=== PATIENT | female | born 1930 | race Caucasian/White ===

== ENCOUNTER 2017-10-12 14:53 | Emergency (ER) | payer MEDICARE ==
[2017-10-12] MEDS ORDERED: Furosemide 40 MG/4 ML VIAL IVPUSH ONE (15:09)
--- NOTE | 2017-10-12 15:15 | EDM.PDOC ---
ED HPI GENERAL MEDICAL PROBLEM - General Chief Complaint: Respiratory Problem Stated Complaint: SOB Time Seen by Provider: 10/12/17 15:10 Source of Information: Reports: Patient, Custodial Records History Limitations: Reports: Other (Dementia) - History of Present Illness INITIAL COMMENTS - FREE TEXT/NARRATIVE: Cough and congestion since x 5 days. Denies SOB or chest pain. Sa02 80's today. History of CHF and COPD Onset Date: 10/07/17 Severity: Moderate - Related Data Allergies Allergy/AdvReac Type Severity Reaction Status Date / Time codeine Allergy Other Verified 10/12/17 15:20 meperidine [From Demerol] Allergy Other Verified 10/12/17 15:20 Past Medical History Cardiovascular History: Reports: Heart Failure Respiratory History: Reports: COPD Neurological History: Reports: TIA, Other (See Below) (Dementia) Social & Family History - Tobacco Use Tobacco Use Within Last Twelve Months: No ED ROS GENERAL - Review of Systems Review Of Systems: See Below Constitutional: Reports: No Symptoms HEENT: Reports: No Symptoms Respiratory: Reports: Cough. Denies: Shortness of Breath Cardiovascular: Reports: No Symptoms Endocrine: Reports: No Symptoms GI/Abdominal: Reports: No Symptoms : Reports: No Symptoms Musculoskeletal: Reports: No Symptoms Skin: Reports: No Symptoms Neurological: Reports: No Symptoms Psychiatric: Reports: No Symptoms Hematologic/Lymphatic: Reports: No Symptoms Immunologic: Reports: No Symptoms ED EXAM, GENERAL - Physical Exam Exam: See Below Exam Limited By: No Limitations General Appearance: Alert, WD/WN, No Apparent Distress Nose: Normal Inspection Throat/Mouth: No Airway Compromise Head: Atraumatic, Normocephalic Neck: Supple Respiratory/Chest: No Respiratory Distress, Rhonchi. No: Wheezing Cardiovascular: Regular Rate, Rhythm, No Murmur GI/Abdominal: Normal Bowel Sounds, Soft, Non-Tender Extremities: Normal Inspection, Pedal Edema (trace pitting) Neurological: Alert Skin Exam: Warm, Dry, Normal Color, No Rash EKG INTERPRETATION EKG Date: 10/12/17 Time: 15:16 Rhythm: NSR Rate (Beats/Min): 85 [place]: Normal P-Wave: Present QRS: Normal ST-T: Normal QT: Normal EKG Interpretation Comments: No acute ischemia, no arrhythmia Course - Vital Signs Last Recorded V/S: Last Vital Signs Temp 36.9 C 10/12/17 15:00 Pulse 89 07/18/18 15:00 Resp 22 H 10/12/17 15:00 BP 142/71 H 10/12/17 15:00 Pulse Ox 96 10/12/17 15:26 - Orders/Labs/Meds Orders: Active Orders 24 hr Category Date Time Status CXR [Chest 1V Frontal] [CR] Stat Exams 10/12/17 15:07 Taken CULTURE BLOOD [BC] Stat Lab 10/12/17 15:25 Received CULTURE BLOOD [BC] Stat Lab 10/12/17 15:30 Received Sodium Chloride 0.9% [Saline Flush] Med 10/12/17 15:11 Active 10 ml FLUSH ASDIRECTED PRN Blood Culture x2 Reflex Set [OM.PC] Urgent Oth 10/12/17 15:08 Ordered Saline Lock Insert [OM.PC] Routine Oth 10/12/17 15:11 Ordered EKG 12 Lead [EK] Routine Ther 10/12/17 15:07 Ordered Medication Orders Sodium Chloride (Saline Flush) 10 ml FLUSH ASDIRECTED PRN PRN Reason: Keep Vein Open Last Admin: 10/12/17 15:48 Dose: 10 ml Admin: 10/12/17 15:40 Dose: 10 ml Labs: Laboratory Tests 10/12/17 10/12/17 10/12/17 Range/Units 15:25 15:25 15:25 WBC 12.1 H (4.5-12.0) X10-3/uL RBC 3.68 (3.23-5.20) x10(6)uL Hgb 12.3 (11.5-15.5) g/dL Hct 36.9 (30.0-51.3) % MCV 100.2 H (80-96) fL MCH 33.4 (27.7-33.6) pg MCHC 33.3 (32.2-35.4) g/dL RDW 12.4 (11.5-15.5) % Plt Count 332 (125-369) X10(3)uL MPV 8.3 (7.4-10.4) fL Neut % (Auto) 78.2 (46-82) % Lymph % (Auto) 7.3 L (13-37) % Door % (Auto) 12.3 H (4-12) % Eos % (Auto) 0 L (1.0-5.0) % Baso % (Auto) 2 (0-2) % Neut # (Auto) 9.5 H (1.6-8.3) # Lymph # (Auto) 0.9 (0.6-5.0) # Door # (Auto) 1.5 H (0.0-1.3) # Eos # (Auto) 0.0 (0.0-0.8) # Baso # (Auto) 0.2 (0.0-0.2) # PT 9.9 (8.7-11.1) INR 1.02 (0.89-1.13) Sodium 140 (135-145) mmol/L Potassium 4.6 (3.5-5.3) mmol/L Chloride 104 (100-110) mmol/L Carbon Dioxide 29 (21-32) mmol/L BUN 21 H (7-18) mg/dL Creatinine 1.3 H (0.55-1.02) mg/dL Est Cr Clr Drug Dosing TNP Estimated GFR (MDRD) 39 L (>60) BUN/Creatinine Ratio 16.2 (9-20) Glucose 110 (80-116) mg/dL Lactic Acid (0.4-2.2) mmol/L Calcium 9.2 (8.6-10.2) mg/dL Troponin I (<0.017-0.056) ng/mL NT-Pro-B Natriuret Pep (<=450) pg/mL 18 / Range/Units 15:25 15:25 WBC (4.5-12.0) X10-3/uL RBC (3.23-5.20) x10(6)uL Hgb (11.5-15.5) g/dL Hct (30.0-51.3) % MCV (80-96) fL MCH (27.7-33.6) pg MCHC (32.2-35.4) g/dL RDW (11.5-15.5) % Plt Count (125-369) X10(3)uL MPV (7.4-10.4) fL Neut % (Auto) (46-82) % Lymph % (Auto) (13-37) % Door % (Auto) (4-12) % Eos % (Auto) (1.0-5.0) % Baso % (Auto) (0-2) % Neut # (Auto) (1.6-8.3) # Lymph # (Auto) (0.6-5.0) # Door # (Auto) (0.0-1.3) # Eos # (Auto) (0.0-0.8) # Baso # (Auto) (0.0-0.2) # PT (8.7-11.1) INR (0.89-1.13) Sodium (135-145) mmol/L Potassium (3.5-5.3) mmol/L Chloride (100-110) mmol/L Carbon Dioxide (21-32) mmol/L BUN (7-18) mg/dL Creatinine (0.55-1.02) mg/dL Est Cr Clr Drug Dosing Estimated GFR (MDRD) (>60) BUN/Creatinine Ratio (9-20) Glucose (80-116) mg/dL Lactic Acid 1.0 (0.4-2.2) mmol/L Calcium (8.6-10.2) mg/dL Troponin I < 0.017 L (<0.017-0.056) ng/mL NT-Pro-B Natriuret Pep 885 H (<=450) pg/mL Meds: Medications Generic Name Dose Route Start Last Admin Trade Name Freq PRN Reason Stop Dose Admin Sodium Chloride 10 ml 10/12/17 15:11 10/12/17 15:48 Saline Flush FLUSH 10 ml ASDIRECTED PRN Administration Keep Vein Open Discontinued Medications Generic Name Dose Route Start Last Admin Trade Name Freq PRN Reason Stop Dose Admin Furosemide 20 mg 10/12/17 15:09 10/12/17 15:48 Lasix IVPUSH 10/12/17 15:10 20 mg NOW ONE Administration Levofloxacin 750 mg 10/12/17 16:31 10/12/17 16:48 Levaquin PO 10/12/17 16:32 750 mg ONETIME ONE Administration - Radiology Interpretation Free Text/Narrative:: CXR: right sided infiltrate - Re-Assessments/Exams Free Text/Narrative Re-Assessment/Exam: 10/12/17 16:59 Diuresed 750ml after Lasix 20mg IV. Sa02 93% RA. Denies chest pain or shortness of breath. Departure - Departure Time of Disposition: 17:01 Disposition: DC/Tfer to SNF 03 Condition: Good Clinical Impression: Pneumonia Qualifiers: Pneumonia type: due to unspecified organism Laterality: right Lung location: unspecified part of lung Qualified Code(s): J18.9 - Pneumonia, unspecified organism CHF exacerbation Qualifiers: Heart failure type: unspecified Qualified Code(s): I50.9 - Heart failure, unspecified - Discharge Information *PRESCRIPTION DRUG MONITORING PROGRAM REVIEWED*: No *COPY OF PRESCRIPTION DRUG MONITORING REPORT IN PATIENT MANOLO: Not Applicable Instructions: Community-Acquired Pneumonia, Adult, Heart Failure Exacerbation Referrals: Óscar Toledo MD [Primary Care Provider] - Forms: ED Department Discharge Additional Instructions: Increase Lasix to 40mg qam. Levaquin 750mg q48h. Albuterol 2.5mg q4h PRN. O2 to keep Sa02 >=92%. Discharged back to [facility]. - My Orders Last 24 Hours: My Active Orders 10/12/17 15:07 CXR [Chest 1V Frontal] [CR] Stat EKG 12 Lead [EK] Routine 10/12/17 15:08 Blood Culture x2 Reflex Set [OM.PC] Urgent 10/12/17 15:11 Sodium Chloride 0.9% [Saline Flush] 10 ml FLUSH ASDIRECTED PRN Saline Lock Insert [OM.PC] Routine 10/12/17 15:25 CULTURE BLOOD [BC] Stat 10/12/17 15:30 CULTURE BLOOD [BC] Stat - Assessment/Plan Last 24 Hours: My Active Orders 10/12/17 15:07 CXR [Chest 1V Frontal] [CR] Stat EKG 12 Lead [EK] Routine 10/12/17 15:08 Blood Culture x2 Reflex Set [OM.PC] Urgent 10/12/17 15:11 Sodium Chloride 0.9% [Saline Flush] 10 ml FLUSH ASDIRECTED PRN Saline Lock Insert [OM.PC] Routine 10/12/17 15:25 CULTURE BLOOD [BC] Stat 10/12/17 15:30 CULTURE BLOOD [BC] Stat
[2017-10-12] MEDS: Sodium Chloride 0.9% 10 ML Syringe FLUSH PRN ×2 (15:40→15:48)
[2017-10-12] MEDS ORDERED: Levofloxacin 750 MG Tab PO ONE (16:31)
--- NOTE | 2017-10-13 08:09 | CR ---
INDICATION: Cough. CHEST: An AP portable upright view of the chest was obtained 10/12/2017 and compared with 10/23/2014 and 06/18/2010. Very poor inspiration is noted on the current study. The heart appeared slightly prominent but may be within normal limits in size, allowing for rotation and poor inspiration, as well as AP positioning. The aorta is tortuous with calcification in the arch and descending portion. Infiltration is noted in the right mid lung field, suggesting pneumonia extending into the lower lung field on the right also. The left lung and pleural space appeared normal. The right costophrenic angle is minimally blunted, which may represent pleuritis. IMPRESSION: 1. Probable patchy pneumonia in the right mid lung field and extending minimally towards the lung base with there likely to be a degree of pleuritis. 2. Probable ASHD. 3. Dextroconcave scoliosis thoracolumbar spine. MTDD
== END 2017-10-12 17:10 ==
LOC: FB.ED 14:53
DX: I50.9 Heart failure, unspecified (principal); J18.9 Pneumonia, unspecified organism; J44.9 Chronic obstructive pulmonary disease, unspecified; Z88.5 Allergy status to narcotic agent
CPT/HCPCS: 36415; 71045; 80048; 83605; 83880; 84484; 85025; 85610; 87040; 93005; 96374; 99285; A9270-GY; J1940; J7050

== ENCOUNTER 2017-10-13 23:55 | Emergency (ER) | payer MEDICARE ==
[2017-10-14] MEDS ORDERED: Sodium Chloride 0.9% 10 ML Syringe FLUSH PRN (00:27)
--- NOTE | 2017-10-14 00:29 | EDM.PDOC ---
ED HPI GENERAL MEDICAL PROBLEM - General Chief Complaint: Lower Extremity Injury/Pain Stated Complaint: RT THIGH PAIN Time Seen by Provider: 10/14/17 00:23 Source of Information: Reports: Patient, [facility] Records History Limitations: Reports: No Limitations - History of Present Illness INITIAL COMMENTS - FREE TEXT/NARRATIVE: Patient had a ground level fall @ 2100 yesterday, she fell after standing up from seated position. Complains of right thigh and lower leg pain. No LOC. No H/ A or neck pain. Treated in ED 2 days ago, dx'd with pneumonia and CHF exacerbation. Onset Date: 10/13/17 Onset Time: 21:00 Location: Reports: Lower Extremity, Right Quality: Reports: Dull Severity: Moderate Rt hip Pain Score (Numeric/FACES): 7 - Related Data Allergies Allergy/AdvReac Type Severity Reaction Status Date / Time codeine Allergy Other Verified 10/14/17 00:03 meperidine [From Demerol] Allergy Other Verified 10/14/17 00:03 Home Meds: Home Meds Acetaminophen [Tylenol Extra Strength] 1,000 mg PO BID 10/12/17 [History] Aspirin 81 mg PO DAILY 10/12/17 [History] Calcium Carbonate/Vitamin D3 [Caltrate 600+D 1500 MG-400 Units] 1 tab PO BID [History] Clopidogrel Bisulfate [Clopidogrel] 75 mg PO DAILY 10/12/17 [History] Furosemide 40 mg PO DAILY 10/12/17 [History] Multivit-Min/FA/Lycopene/Lut [Certavite Sr-Antioxidant Tab] 1 tab PO DAILY 10/12 [History] Polyvinyl Alcohol [Artificial Tears] 2 drop EYEBOTH BID 10/12/17 [History] Potassium Chloride 10 meq PO BID 10/12/17 [History] Sennosides/Docusate Sodium [Senna-S] 2 tab PO DAILY 10/12/17 [History] Timolol Maleate [Timoptic 0.5% Ophth Soln] 1 drop EYEBOTH DAILY 10/12/17 [ History] Acetaminophen [Acetaminophen ER] 650 mg PO Q4H PRN 10/14/17 [History] Levofloxacin [Levaquin] 750 mg PO Q48H 10/14/17 [History] Loperamide [Imodium] 2 mg PO DAILY PRN 10/14/17 [History] Magnesium Hydroxide [Milk of Magnesia] 30 ml PO DAILY PRN 10/14/17 [History] Meclizine HCl 12.5 mg PO TID PRN 10/14/17 [History] guaiFENesin [Robitussin] 10 ml PO Q4H PRN 10/14/17 [History] Past Medical History HEENT History: Reports: Other (See Below) Other HEENT History: dry eye, chronic rhinitis, Cardiovascular History: Reports: Heart Failure Respiratory History: Reports: COPD Gastrointestinal History: Reports: GERD Musculoskeletal History: Reports: Gout Neurological History: Reports: TIA, Other (See Below) (Dementia) Social & Family History - Tobacco Use Tobacco Use Within Last Twelve Months: No - Living Situation & Occupation Living situation: Reports: Extended Care Facility Review of Systems - Review of Systems Review Of Systems: See Below Constitutional: Reports: No Symptoms Eyes: Reports: No Symptoms Ears: Reports: No Symptoms Nose: Reports: No Symptoms Mouth/Throat: Reports: No Symptoms Respiratory: Reports: Cough Cardiovascular: Reports: No Symptoms GI/Abdominal: Reports: No Symptoms Genitourinary: Reports: No Symptoms Musculoskeletal: Reports: Other (right thigh and lower leg pain) Skin: Reports: No Symptoms Neurological: Reports: No Symptoms ED EXAM, GENERAL - Physical Exam Exam: See Below Exam Limited By: No Limitations General Appearance: Alert, WD/WN, No Apparent Distress Eye Exam: Bilateral Eye: EOMI, PERRL Ears: Normal External Exam Nose: Normal Inspection Throat/Mouth: No Airway Compromise Head: Atraumatic, Normocephalic Neck: Normal Inspection, Non-Tender Respiratory/Chest: No Respiratory Distress, Rhonchi Cardiovascular: Normal Peripheral Pulses, Regular Rate, Rhythm, No Edema, No Murmur GI/Abdominal: Normal Bowel Sounds, Soft, Non-Tender Extremities: Other (moderate tenderness right hip, upper thigh and lower leg. right leg externally rotated) Neurological: Alert, No Motor/Sensory Deficits Skin Exam: Warm, Dry, Intact EKG INTERPRETATION EKG Date: 10/14/17 Time: 00:31 Rate (Beats/Min): 101 [place]: Normal P-Wave: Present QRS: Normal ST-T: Normal QT: Normal EKG Interpretation Comments: sinus tachycardia Course - Vital Signs Last Recorded V/S: Last Vital Signs Temp 36.8 C 10/13/17 23:55 Pulse 99 10/13/17 23:55 Resp 15 07/19/18 23:55 BP 152/69 H 10/13/17 23:55 Pulse Ox 93 L 10/13/17 23:55 - Orders/Labs/Meds Orders: Active Orders 24 hr Category Date Time Status EKG Documentation Completion [RC] ASDIRECTED Care 10/14/17 00:22 Active Insert Urinary Catheter [OM.PC] Q24H Care 10/14/17 02:15 Ordered Urinary Catheter Assessment [RC] QSHIFT Care 10/14/17 02:12 Active C-Spine [Cervical Spine wo Cont] [CT] Stat Exams 10/14/17 00:59 Ordered Femur Min 2V Rt [CR] Stat Exams 10/14/17 00:18 Ordered Head wo Cont [CT] Stat Exams 10/14/17 00:59 Ordered Pelvis 1V or 2V [CR] Stat Exams 10/14/17 00:18 Ordered Pelvis wo Cont [CT] Stat Exams 10/14/17 01:00 Taken Tibia Fibula Rt [CR] Stat Exams 10/14/17 00:18 Ordered CULTURE URINE [RM] Stat Lab 10/14/17 02:41 Ordered UA W/MICROSCOPIC [URIN] Stat Lab 10/14/17 02:26 Ordered Sodium Chloride 0.9% [Normal Saline] 1,000 ml Med 10/14/17 02:30 Active IV ASDIRECTED Sodium Chloride 0.9% [Saline Flush] Med 10/14/17 00:27 Active 10 ml FLUSH ASDIRECTED PRN Saline Lock Insert [OM.PC] Routine Oth 10/14/17 00:27 Ordered EKG 12 Lead [EK] Stat Ther 10/14/17 00:21 Ordered Medication Orders Sodium Chloride (Normal Saline) 1,000 mls @ 75 mls/hr IV ASDIRECTED DEYANIRA Last Admin: 10/14/17 02:42 Dose: 75 mls/hr Sodium Chloride (Saline Flush) 10 ml FLUSH ASDIRECTED PRN PRN Reason: Keep Vein Open Last Admin: 10/14/17 01:20 Dose: 10 ml Labs: Laboratory Tests 10/14/17 10/14/17 10/14/17 Range/Units 00:40 01:35 01:35 WBC 9.2 (4.5-12.0) X10-3/uL RBC 3.63 (3.23-5.20) x10(6)uL Hgb 11.9 (11.5-15.5) g/dL Hct 36.2 (30.0-51.3) % MCV 99.8 H (80-96) fL MCH 32.7 (27.7-33.6) pg MCHC 32.7 (32.2-35.4) g/dL RDW 12.9 (11.5-15.5) % Plt Count 363 (125-369) X10(3)uL MPV 7.8 (7.4-10.4) fL Add Manual Diff Yes Neutrophils % (Manual) 86 H (46-82) % Band Neutrophils % 2 (0-6) % Lymphocytes % (Manual) 6 L (13-37) % Monocytes % (Manual) 6 (4-12) % PT 10.3 (8.7-11.1) INR 1.06 (0.89-1.13) Sodium 139 (135-145) mmol/L Potassium 4.2 (3.5-5.3) mmol/L Chloride 102 (100-110) mmol/L Carbon Dioxide 27 (21-32) mmol/L BUN 20 H (7-18) mg/dL Creatinine 1.4 H (0.55-1.02) mg/dL Est Cr Clr Drug Dosing 21.55 mL/min Estimated GFR (MDRD) 35 L (>60) BUN/Creatinine Ratio 14.3 (9-20) Glucose 119 H (80-116) mg/dL Calcium 9.5 (8.6-10.2) mg/dL Urine Color (YELLOW) Urine Appearance (CLEAR) Urine pH (5.0-6.5) Ur Specific [place] (1.010-1.025) Urine Protein (NEGATIVE) mg/dL Urine Glucose (UA) (NEGATIVE) mg/dL Urine Ketones (NEGATIVE) mg/dL Urine Occult Blood (NEGATIVE) Urine Nitrite (NEGATIVE) Urine Bilirubin (NEGATIVE) Urine Urobilinogen (NEGATIVE) mg/dL Ur Leukocyte Esterase (NEGATIVE) Urine RBC (0) Urine WBC (0) Ur Squamous Epith Cells (NS,R,O) Urine Bacteria (NS) Urine Mucus (NS) 10/14/17 Range/Units 02:26 WBC (4.5-12.0) X10-3/uL RBC (3.23-5.20) x10(6)uL Hgb (11.5-15.5) g/dL Hct (30.0-51.3) % MCV (80-96) fL MCH (27.7-33.6) pg MCHC (32.2-35.4) g/dL RDW (11.5-15.5) % Plt Count (125-369) X10(3)uL MPV (7.4-10.4) fL Add Manual Diff Neutrophils % (Manual) (46-82) % Band Neutrophils % (0-6) % Lymphocytes % (Manual) (13-37) % Monocytes % (Manual) (4-12) % PT (8.7-11.1) INR (0.89-1.13) Sodium (135-145) mmol/L Potassium (3.5-5.3) mmol/L Chloride (100-110) mmol/L Carbon Dioxide (21-32) mmol/L BUN (7-18) mg/dL Creatinine (0.55-1.02) mg/dL Est Cr Clr Drug Dosing mL/min Estimated GFR (MDRD) (>60) BUN/Creatinine Ratio (9-20) Glucose (80-116) mg/dL Calcium (8.6-10.2) mg/dL Urine Color Yellow (YELLOW) Urine Appearance Clear (CLEAR) Urine pH 6.5 (5.0-6.5) Ur Specific [place] 1.010 (1.010-1.025) Urine Protein 30 H (NEGATIVE) mg/dL Urine Glucose (UA) Normal (NEGATIVE) mg/dL Urine Ketones Negative (NEGATIVE) mg/dL Urine Occult Blood Negative (NEGATIVE) Urine Nitrite Negative (NEGATIVE) Urine Bilirubin Negative (NEGATIVE) Urine Urobilinogen Normal (NEGATIVE) mg/dL Ur Leukocyte Esterase Small H (NEGATIVE) Urine RBC 0-5 (0) Urine WBC 5-10 (0) Ur Squamous Epith Cells Few H (NS,R,O) Urine Bacteria Moderate H (NS) Urine Mucus Few H (NS) Meds: Medications Generic Name Dose Route Start Last Admin Trade Name Freq PRN Reason Stop Dose Admin Sodium Chloride 1,000 mls @ 75 mls/hr 10/14/17 02:30 10/14/17 02:42 Normal Saline IV 75 mls/hr ASDIRECTED DEYANIRA Administration Sodium Chloride 10 ml 10/14/17 00:27 10/14/17 01:20 Saline Flush FLUSH 10 ml ASDIRECTED PRN Administration Keep Vein Open Discontinued Medications Generic Name Dose Route Start Last Admin Trade Name Lisette PRN Reason Stop Dose Admin Hydromorphone HCl 0.5 mg 10/14/17 01:15 10/14/17 01:24 Dilaudid IVPUSH 10/14/17 01:16 0.5 mg ONETIME ONE Administration Hydromorphone HCl 0.5 mg 10/14/17 02:29 10/14/17 02:33 Dilaudid IVPUSH 10/14/17 02:30 0.5 mg ONETIME ONE Administration - Radiology Interpretation Free Text/Narrative:: Pelvis XR, right femur XR: questionable femoral neck fracture. Right Tib-Fib XR: NAD CT Head: NAD CT C-spine: NAD CT Pelvis: right femoral neck fracture CT Results Date: 10/14/17 - Re-Assessments/Exams Free Text/Narrative Re-Assessment/Exam: 10/14/17 02:13 I informed Pb Leigh (patient's son) at [phone] that [facility] does not have orthopedic surgery coverage at this time. He requested the patient be transferred to [facility] for definitive care. 10/14/17 02:59 Dr. Perales (orthopedic surgeon) agrees to accept patient for transfer to [facility]. Departure - Departure Time of Disposition: 03:00 Disposition: DC/Tfer to Acute Hospital 02 Condition: Fair Clinical Impression: Fracture of femoral neck, right Qualifiers: Encounter type: initial encounter Fracture type: closed Qualified Code(s): S72.001A - Fracture of unspecified part of neck of right femur, initial encounter for closed fracture - Discharge Information *PRESCRIPTION DRUG MONITORING PROGRAM REVIEWED*: No *COPY OF PRESCRIPTION DRUG MONITORING REPORT IN PATIENT MANOLO: Not Applicable Referrals: Óscar Toledo MD [Primary Care Provider] - Forms: ED Department Discharge Additional Instructions: Patient will be transferred to [facility], Dr. Perales accepting. - My Orders Last 24 Hours: My Active Orders 10/14/17 00:18 Femur Min 2V Rt [CR] Stat Pelvis 1V or 2V [CR] Stat Tibia Fibula Rt [CR] Stat 10/14/17 00:21 EKG 12 Lead [EK] Stat 10/14/17 00:22 EKG Documentation Completion [RC] ASDIRECTED 10/14/17 00:27 Sodium Chloride 0.9% [Saline Flush] 10 ml FLUSH ASDIRECTED PRN Saline Lock Insert [OM.PC] Routine 10/14/17 00:59 C-Spine [Cervical Spine wo Cont] [CT] Stat Head wo Cont [CT] Stat 10/14/17 01:00 Pelvis wo Cont [CT] Stat 10/14/17 02:12 Urinary Catheter Assessment [RC] QSHIFT 10/14/17 02:15 Insert Urinary Catheter [OM.PC] Q24H 10/14/17 02:26 UA W/MICROSCOPIC [URIN] Stat 10/14/17 02:30 Sodium Chloride 0.9% [Normal Saline] 1,000 ml IV ASDIRECTED 10/14/17 02:41 CULTURE URINE [RM] Stat - Assessment/Plan Last 24 Hours: My Active Orders 10/14/17 00:18 Femur Min 2V Rt [CR] Stat Pelvis 1V or 2V [CR] Stat Tibia Fibula Rt [CR] Stat 10/14/17 00:21 EKG 12 Lead [EK] Stat 10/14/17 00:22 EKG Documentation Completion [RC] ASDIRECTED 10/14/17 00:27 Sodium Chloride 0.9% [Saline Flush] 10 ml FLUSH ASDIRECTED PRN Saline Lock Insert [OM.PC] Routine 10/14/17 00:59 C-Spine [Cervical Spine wo Cont] [CT] Stat Head wo Cont [CT] Stat 10/14/17 01:00 Pelvis wo Cont [CT] Stat 10/14/17 02:12 Urinary Catheter Assessment [RC] QSHIFT 10/14/17 02:15 Insert Urinary Catheter [OM.PC] Q24H 10/14/17 02:26 UA W/MICROSCOPIC [URIN] Stat 10/14/17 02:30 Sodium Chloride 0.9% [Normal Saline] 1,000 ml IV ASDIRECTED 10/14/17 02:41 CULTURE URINE [RM] Stat
[2017-10-14] MEDS ORDERED: HYDROmorphone 2 MG/ML SDV IVPUSH ONE ×2 (01:15→02:29)
[2017-10-14] MEDS ORDERED: Sodium Chloride 0.9% 1,000 ML IV SCH (02:30)
--- NOTE | 2017-10-14 13:58 | CR ---
INDICATION: Fall. RIGHT FEMUR: Five images of the right femur in frontal and somewhat oblique projections revealed a partially subcapital oblique fracture throug the femoral neck extending towards the intertrochanteric area along the medial portion of the fracture line. There is lateral angulation at the fracture site, and some rotation of fracture fragments is also suggested. Severe degenerative changes are noted at the patellofemoral joint. A mild degree of demineralization raises question of osteoporosis. Incidentally noted were arterial calcifications in the femoral and popliteal, as well as trifurcation area arteries. IMPRESSION: 1. Femoral neck fracture with deformity. 2. Osteoporosis. 3. Osteoarthritis patellofemoral joint and knee joint to a lesser extent with chondrocalcinosis, likely on the basis of osteoarthritis. 4. ASD. MTDD
--- NOTE | 2017-10-14 14:03 | CR ---
INDICATION: Fall. PELVIS: A single frontal view of the pelvis was obtained and revealed a femoral neck fracture on the right, as previously noted. Diminished bone density is noted compatible with osteoporosis. Mild degenerative changes are noted at the right sacroiliac joint. Mild degenerative changes are noted at the left hip joint. The joint spaces of the hips appear to be fairly well maintained, although craniolaterally, there may be a slight loss of hip joint space on the left. IMPRESSION: 1. Femoral neck fracture on the right with deformity. 2. Osteoporosis. 3. Mild osteoarthritis left hip. 4. ASD. 5. Mild osteoarthritis right sacroiliac joint. MTDD
--- NOTE | 2017-10-14 14:06 | CR ---
INDICATION: Fall. RIGHT TIBIA AND FIBULA: Four views of the right tibia andfibula were obtained in frontal and lateral projections. The study was obtained 10/14/2017. There are no comparisons. Diminished bone density is notedcompatible with osteoporosis. There appear to bedegenerative changes at the subtalar joints. A fracture or dislocation was not identified. Chondrocalcinosis is noted at the knee joint, which likely is on the basis of osteoarthritis but could be on the basis of CPPD arthropathy - correlate clinically. IMPRESSION: 1. No acute fracture or dislocation. 2. Osteoporosis. 3. Osteoarthritis. MTDD
== END 2017-10-14 03:34 ==
LOC: FB.ED 23:55
DX: S72.001A Fracture of unspecified part of neck of right femur, initial encounter for closed fracture (principal); I50.9 Heart failure, unspecified; J44.9 Chronic obstructive pulmonary disease, unspecified; K21.9 Gastro-esophageal reflux disease without esophagitis; Z88.5 Allergy status to narcotic agent; Z79.899 Other long term (current) drug therapy; Z79.82 Long term (current) use of aspirin; Z86.73 Personal history of transient ischemic attack (TIA), and cerebral infarction without residual deficits; W18.30XA Fall on same level, unspecified, initial encounter
CPT/HCPCS: 36415; 70450; 72125; 72170; 72192; 73552; 73590; 80048; 81001; 85025; 85610; 87086; 93005; 96361; 96374; 96376; 99285; J1170; J7030; J7050